=== PATIENT | male | born 1940 | race Caucasian/White ===

== ENCOUNTER 2021-02-13 15:29 | Emergency (ER) | payer MEDICARE, OTHER ==
[~2021-02-13] VITALS: Ht 175.3 cm; Wt 78.5 kg
[2021-02-13 16:12] LABS: HEMOGLOBIN 14.6 gm/dl (14.0-17.5); RED BLOOD COUNT 5.04 M/UL (4.20-5.50); WHITE BLOOD COUNT 5.1 K/UL (4.5-11.0)
== END 2021-02-13 20:40 | disposition home or self-care (01) ==
LOC: ER1 15:29
PROVIDERS: Physician Assistant
DX: U07.1 COVID-19 (principal); Z23 Encounter for immunization; I51.9 Heart disease, unspecified; E11.9 Type 2 diabetes mellitus without complications
CPT/HCPCS: 71045; 80053; 82550; 82553; 83605; 84484; 85025; 87040; 93005; 99284; M0245

== ENCOUNTER 2021-02-19 21:34 | Emergency (ER) | payer MEDICARE, OTHER ==
[2021-02-20 00:03] LABS: HEMOGLOBIN 14.5 gm/dl (14.0-17.5); RED BLOOD COUNT 4.97 M/UL (4.20-5.50); WHITE BLOOD COUNT 7.3 K/UL (4.5-11.0)
== END 2021-02-20 03:16 | disposition home or self-care (01) ==
LOC: ER1 21:34
PROVIDERS: Physician Assistant Medical
DX: U07.1 COVID-19 (principal); E11.65 Type 2 diabetes mellitus with hyperglycemia; E11.22 Type 2 diabetes mellitus with diabetic chronic kidney disease; N18.9 Chronic kidney disease, unspecified; I25.10 Atherosclerotic heart disease of native coronary artery without angina pectoris; Z87.891 Personal history of nicotine dependence; J44.9 Chronic obstructive pulmonary disease, unspecified; E11.649 Type 2 diabetes mellitus with hypoglycemia without coma
CPT/HCPCS: 36415; 80053; 81001; 82009; 82962; 85025; 99283

== ENCOUNTER 2021-03-10 07:35 | Inpatient (IN) | payer MEDICARE ==
[~2021-03-10] VITALS: Ht 177.8 cm; Wt 79.4 kg
[2021-03-10 08:30] LABS: HEMOGLOBIN 13.6 gm/dl (14.0-17.5); RED BLOOD COUNT 4.87 M/UL (4.20-5.50); WHITE BLOOD COUNT 7.4 K/UL (4.5-11.0)
[2021-03-10] MEDS ORDERED: PROVENTIL HFA6.7 GM INH (12:35)
[2021-03-10] MEDS ORDERED: WIXELA 500-501 EACH INH (12:35)
[2021-03-10] MEDS ORDERED: THEO-24300 MG PO (12:37)
[2021-03-10] MEDS ORDERED: HYDRALAZINE HCL25 MG PO (12:38)
[2021-03-10] MEDS ORDERED: AMARYL1 MG PO (12:38)
[2021-03-10] MEDS ORDERED: ZEBETA 5 MG TAB5 MG PO (12:38)
[2021-03-10] MEDS ORDERED: LIPITOR10 MG PO (12:39)
[2021-03-10] MEDS ORDERED: NITROSTAT 0.4100 TAB SL (12:39)
[2021-03-10] MEDS ORDERED: BUMETANIDE2 MG PO (12:39)
[2021-03-10] MEDS ORDERED: ALLERGY RELIEF4 MG PO (12:40)
[2021-03-10] MEDS ORDERED: ASPIRIN EC81 MG PO (12:40)
--- NOTE | 2021-03-10 19:19 | NUR ---
DR ZAPIEN ON FLOOR. NOTIFIED OF ELEVATED TROPONIN. RECIEVED NO NEW ORDERS. PT RESTING QUIETLY FREE OF DISTRESS. WILL CONTINUE TO MONITOR.
[2021-03-11 02:35] LABS: HEMOGLOBIN 12.6 gm/dl (14.0-17.5); RED BLOOD COUNT 4.47 M/UL (4.20-5.50); WHITE BLOOD COUNT 6.7 K/UL (4.5-11.0)
[2021-03-12 11:37] LABS: HEMOGLOBIN 11.1 gm/dl (14.0-17.5); WHITE BLOOD COUNT 5.9 K/UL (4.5-11.0)
[2021-03-12 11:38] LABS: RED BLOOD COUNT 3.96 M/UL (4.20-5.50)
[2021-03-13 10:03] LABS: HEMOGLOBIN 11.8 gm/dl (14.0-17.5); RED BLOOD COUNT 4.22 M/UL (4.20-5.50); WHITE BLOOD COUNT 5.8 K/UL (4.5-11.0)
[2021-03-14 05:57] LABS: HEMOGLOBIN 13.6 gm/dl (14.0-17.5); RED BLOOD COUNT 4.71 M/UL (4.20-5.50); WHITE BLOOD COUNT 6.4 K/UL (4.5-11.0)
[2021-03-15 05:39] LABS: HEMOGLOBIN 12.9 gm/dl (14.0-17.5); RED BLOOD COUNT 4.51 M/UL (4.20-5.50); WHITE BLOOD COUNT 7.9 K/UL (4.5-11.0)
[2021-03-18 07:41] LABS: HEMOGLOBIN 10.6 gm/dl (14.0-17.5); RED BLOOD COUNT 3.82 M/UL (4.20-5.50); WHITE BLOOD COUNT 6.3 K/UL (4.5-11.0)
[2021-03-18] MEDS ORDERED: LOPRESSOR 50 MG50 MG PO (16:52)
[2021-03-18] MEDS ORDERED: CEFUROXIME500 MG PO (16:52)
[2021-03-18] MEDS ORDERED: LANTUS SOL100 UNIT/1 SQ (17:01)
[2021-03-18] MEDS ORDERED: HUMALOG 10100 UNITS/ SC (17:01)
== END 2021-03-18 19:30 | disposition home or self-care (01) | DRG 193 ==
LOC: ER1 07:35 → CDU 10:13 → MED SURG 4 10:13 → 3 EAST 13:10 → MED SURG 4 19:13 → PROG CARE 03-12 19:23 → MED SURG 4 03-14 22:03
PROVIDERS: Emergency Medicine; Internal Medicine; Physician Assistant; ADMIT Internal Medicine
PROC: B24BZZZ Ultrasonography of Heart with Aorta (ICD-10-PCS; principal; 2021-03-10)
DX: J18.9 Pneumonia, unspecified organism (principal); I21.A1 Myocardial infarction type 2; J96.01 Acute respiratory failure with hypoxia; U07.1 COVID-19; J44.0 Chronic obstructive pulmonary disease with (acute) lower respiratory infection; J44.1 Chronic obstructive pulmonary disease with (acute) exacerbation; N17.9 Acute kidney failure, unspecified; I47.1 Supraventricular tachycardia; I12.9 Hypertensive chronic kidney disease with stage 1 through stage 4 chronic kidney disease, or unspecified chronic kidney disease; E78.5 Hyperlipidemia, unspecified; E86.0 Dehydration; N40.0 Benign prostatic hyperplasia without lower urinary tract symptoms; I25.10 Atherosclerotic heart disease of native coronary artery without angina pectoris; E11.22 Type 2 diabetes mellitus with diabetic chronic kidney disease; J64 Unspecified pneumoconiosis; H91.90 Unspecified hearing loss, unspecified ear; N18.30 Chronic kidney disease, stage 3 unspecified; Z86.16 Personal history of COVID-19; Z95.1 Presence of aortocoronary bypass graft; Z85.828 Personal history of other malignant neoplasm of skin; Z79.82 Long term (current) use of aspirin; Z79.899 Other long term (current) drug therapy; Z87.891 Personal history of nicotine dependence; Z83.3 Family history of diabetes mellitus; Z82.49 Family history of ischemic heart disease and other diseases of the circulatory system; Z80.8 Family history of malignant neoplasm of other organs or systems
CPT/HCPCS: ECHO; 36415; 71045; 71046; 80048; 80053; 80202; 82550; 82553; 82962; 83036; 83735; 83874; 83880; 84484; 85025; 85027; 85730; 93005; 93306; 94640; 94664; 94760; 96374; 97161; 99285; J0692; J1644; J1650; J2185; J3370; J7030; J7070; U0002

== ENCOUNTER 2021-04-03 23:59 | Inpatient (IN) | payer MEDICARE, OTHER ==
[~2021-04-03] VITALS: Ht 177.8 cm; Wt 73.6 kg
[~2021-04-03 23:59] MED LIST: ALLERGY RELIEF4 MG PO; AMARYL1 MG PO; ASPIRIN EC81 MG PO; BUMETANIDE2 MG PO; CEFUROXIME500 MG PO; HUMALOG 10100 UNITS/ SC; HYDRALAZINE HCL25 MG PO; LANTUS SOL100 UNIT/1 SQ; LIPITOR10 MG PO; LOPRESSOR 50 MG50 MG PO; NITROSTAT 0.4100 TAB SL; PROVENTIL HFA6.7 GM INH; THEO-24300 MG PO; WIXELA 500-501 EACH INH; ZEBETA 5 MG TAB5 MG PO
[2021-04-04 01:51] LABS: HEMOGLOBIN 10.2 gm/dl (14.0-17.5); RED BLOOD COUNT 3.7 M/UL (4.20-5.50); WHITE BLOOD COUNT 6.4 K/UL (4.5-11.0)
[2021-04-05 04:30] LABS: HEMOGLOBIN 9.7 gm/dl (14.0-17.5); RED BLOOD COUNT 3.57 M/UL (4.20-5.50); WHITE BLOOD COUNT 5.7 K/UL (4.5-11.0)
[2021-04-06 03:43] LABS: HEMOGLOBIN 10.1 gm/dl (14.0-17.5); RED BLOOD COUNT 3.64 M/UL (4.20-5.50)
[2021-04-06 03:50] LABS: WHITE BLOOD COUNT 7.7 K/UL (4.5-11.0)
[2021-04-06 10:08] LABS: CREATININE, URINE 33.7 mg/dL (Not Estab.)
[2021-04-07 03:17] LABS: HEMOGLOBIN 10.2 gm/dl (14.0-17.5); RED BLOOD COUNT 3.71 M/UL (4.20-5.50)
[2021-04-07 03:20] LABS: WHITE BLOOD COUNT 5.7 K/UL (4.5-11.0)
[2021-04-07] MEDS ORDERED: FLOMAX 0.4 MG0.4 MG PO (10:59)
[2021-04-07] MEDS ORDERED: LANTUS SOL100 UNIT/1 SQ (11:11)
[2021-04-07] MEDS ORDERED: NOVOLOG FL100 UNIT/1 SC (11:20)
--- NOTE | 2021-04-07 11:48 | NUR ---
PT TRANSFERRED TO BEDSIDE CHAIR ROOM AIR SATS 87% OXYGEN AT 2 TO 3 LITERS HE IS 97%
--- NOTE | 2021-04-07 12:19 | NUR ---
PT ROOM AIR SATS 87%
--- NOTE | 2021-04-07 15:22 | NUR ---
V AND A HOME HEALTH NOTIFIED.
== END 2021-04-07 15:51 | disposition home health service (06) | DRG 682 ==
LOC: ER1 23:59 → CDU 04-04 06:18 → M/S 04-04 18:59
PROVIDERS: Internal Medicine; Physician Assistant; ADMIT Internal Medicine
PROC: B24BZZZ Ultrasonography of Heart with Aorta (ICD-10-PCS; principal; 2021-04-05)
DX: N17.9 Acute kidney failure, unspecified (principal); I50.33 Acute on chronic diastolic (congestive) heart failure; I13.0 Hypertensive heart and chronic kidney disease with heart failure and stage 1 through stage 4 chronic kidney disease, or unspecified chronic kidney disease; I47.1 Supraventricular tachycardia; Z20.822 Contact with and (suspected) exposure to COVID-19; I25.10 Atherosclerotic heart disease of native coronary artery without angina pectoris; E78.5 Hyperlipidemia, unspecified; N18.30 Chronic kidney disease, stage 3 unspecified; J44.9 Chronic obstructive pulmonary disease, unspecified; R80.9 Proteinuria, unspecified; D64.9 Anemia, unspecified; E11.22 Type 2 diabetes mellitus with diabetic chronic kidney disease; N40.1 Benign prostatic hyperplasia with lower urinary tract symptoms; H91.90 Unspecified hearing loss, unspecified ear; Z86.16 Personal history of COVID-19; N13.6 Pyonephrosis; Z95.1 Presence of aortocoronary bypass graft; I25.2 Old myocardial infarction; Z98.890 Other specified postprocedural states; Z82.49 Family history of ischemic heart disease and other diseases of the circulatory system; Z83.3 Family history of diabetes mellitus; Z87.891 Personal history of nicotine dependence; Z79.4 Long term (current) use of insulin; Z85.828 Personal history of other malignant neoplasm of skin
CPT/HCPCS: ECHO; 36415; 71045; 80048; 80053; 81001; 82009; 82043; 82436; 82550; 82553; 82570; 82728; 82962; 83540; 83550; 83874; 83880; 84133; 84156; 84300; 84484; 85025; 89050; 93005; 93306; 96372; 96374; 99285; G0378; J1644; J1756; U0002

== ENCOUNTER → 2021-05-23 | Outpatient (CLI) | payer MEDICARE, OTHER ==
[~2021-05-23] MED LIST changes: +FLOMAX 0.4 MG0.4 MG PO; +NOVOLOG FL100 UNIT/1 SC
[2021-05-24 10:14] LABS: CREATININE, URINE 65.2 mg/dL (Not Estab.)
== END ==
LOC: LAB 09:30
PROVIDERS: Internal Medicine Nephrology
DX: I10 Essential (primary) hypertension (principal)
CPT/HCPCS: 36415; 80053; 81001; 82043; 82570; 84156

== ENCOUNTER → 2021-08-07 | Outpatient (CLI) | payer MEDICARE, OTHER ==
[2021-08-09 10:13] LABS: CREATININE, URINE 94.4 mg/dL (Not Estab.)
== END ==
LOC: US 13:30
PROVIDERS: Internal Medicine Nephrology
DX: N18.9 Chronic kidney disease, unspecified (principal)
CPT/HCPCS: 36415; 80053; 81001; 82043; 82570; 84156